=== PATIENT | male | born 1985 | race Caucasian/White ===

== ENCOUNTER → 2016-10-08 | Outpatient (CLI) | payer OTHER | LOC: COL.VAS 12:50 | DX: I82.4Z2 Acute embolism and thrombosis of unspecified deep veins of left distal lower extremity (principal); S92.045A Nondisplaced other fracture of tuberosity of left calcaneus, initial encounter for closed fracture ==

== ENCOUNTER 2019-11-05 17:58 | Emergency (ER) | payer OTHER ==
[~2019-11-05] VITALS: Ht 182.9 cm; Wt 87.7 kg
[2019-11-05 18:04] VITALS: BP 145/90; TEMP 97.7
[2019-11-05] MEDS ORDERED: NORCO 325 MG-51 TAB PO (18:41)
[2019-11-05 19:17] VITALS: PULSE 89
== END 2019-11-05 19:18 | disposition home or self-care (01) ==
LOC: COL.ER 17:58
DX: S42.032A Displaced fracture of lateral end of left clavicle, initial encounter for closed fracture (principal); Z87.11 Personal history of peptic ulcer disease; Z90.81 Acquired absence of spleen; Z90.2 Acquired absence of lung [part of]; W18.30XA Fall on same level, unspecified, initial encounter; Y93.02 Activity, running